=== PATIENT | female | born 1950 | race Caucasian/White ===

== ENCOUNTER → 2017-02-14 | Outpatient (REF) | payer MEDICARE ==
[~2017-02-14] MED LIST: /WARF25TA OR; /WARF5TA OR; ACET65TA OR; ALLO100T OR; BABY ASA PO; BYETTA INJ; CINNAMON PO; FERR325T OR; FISHCAP PO; HYDR25TA6 OR; LISI20TA5 OR; LISIPOW PO; METO50TA4 OR; METROPROLOL PO; MULTLIQ7 PO; NEURONTIN PO; PERC5TAB8 OR; PERC7.5T8 OR; TRAMADOL PO; VITA100T OR; VITA500C OR
== END ==
LOC: M WUC 09:20
PROVIDERS: ATTEND Physician Assistant
DX: R30.0 Dysuria (principal)

== ENCOUNTER → 2017-05-22 | Outpatient (REF) | payer MEDICARE | LOC: M LAB REF 21:11 | PROVIDERS: ATTEND Physician Assistant | DX: R30.0 Dysuria (principal) ==

== ENCOUNTER → 2017-10-30 | Outpatient (REF) | payer MEDICARE | LOC: M LAB REF 16:31 | DX: R30.0 Dysuria (principal) | CPT/HCPCS: 87186 ==

== ENCOUNTER → 2018-03-11 | Outpatient (REF) | payer MEDICARE ==
[2018-03-11 21:56] LABS: AMORPHOUS SEDIMENT SMALL (NEGATIVE); APPEARANCE, URINE CLOUDY (CLEAR); BACTERIA, URINE AUTO 1+ (NEGATIVE); BILIRUBIN, URINE AUTO NEGATIVE (NEGATIVE); BLOOD, URINE BLOOD 2+ (NEGATIVE); COLOR, URINE YELLOW (YELLOW); GLUCOSE, URINE (UA) AUTO 3+ mg/dL (NEGATIVE); KETONE, URINE AUTO NEGATIVE (NEGATIVE); LEUKOCYTE ESTERASE, URINE AUTO 3+ (NEGATIVE); MUCUS, URINE SMALL (NEGATIVE); NITRITE, URINE AUTO NEGATIVE (NEGATIVE); PROTEIN, URINE AUTO 2+ mg/dL (NEGATIVE); RBC, URINE AUTO 21 /HPF (0-3); SQUAMOUS EPITHELIAL CELL UR AU 0 /HPF (0-6); UROBILINOGEN, URINE AUTO 0.2 mg/dL (0.0-2.0); WBC, URINE AUTO TNTC /HPF (0-3)
== END ==
LOC: M LAB REF 20:57
DX: R30.0 Dysuria (principal)
CPT/HCPCS: 81001

== ENCOUNTER → 2018-07-24 | Outpatient (CLI) | payer MEDICARE ==
[2018-07-24 10:03] LABS: BASO % 0.4 % (0.0-1.0); EOS # 0.1 10^3/uL (0.0-0.50); EOS % 1.9 % (0.0-3.0); HEMATOCRIT 53.4 % (36.0-47.0); HEMOGLOBIN 17.6 g/dl (12.0-15.5); IMMATURE GRANULOCYTE % 0.3 % (0-3.0); LYMPH # 1.7 10^3/uL (1.5-4.5); LYMPH % 25.2 % (24.0-44.0); MEAN CORPUSCULAR HEMOGLOBIN 31.5 pg (27.0-33.0); MEAN CORPUSCULAR VOLUME 95.7 fl (80.0-96.0); MONO # 0.7 10^3/uL (0.0-0.8); NEUTROPHILS # 4.3 10^3/uL (1.8-7.7); NEUTROPHILS % 62.2 % (36.0-66.0); PLATELET COUNT, AUTOMATED 265 10^3/uL (150-450); RED BLOOD COUNT 5.58 10^6/uL (4.00-5.40); RED CELL DISTRIBUTION WIDTH 13.4 % (11.5-14.5); WHITE BLOOD COUNT 6.9 10^3/uL (4.0-10.0)
[2018-07-24 11:04] LABS: ALBUMIN 3.1 GM/DL (3.2-5.2); ALBUMIN/GLOBULIN RATIO 0.82 (1.00-1.93); ALKALINE PHOSPHATASE 68 U/L (45-117); ALT/SGPT 17 U/L (12-78); ANION GAP 8 MEQ/L (8-16); AST/SGOT 16 U/L (7-37); BILIRUBIN,TOTAL 0.4 MG/DL (0.2-1.0); BLOOD UREA NITROGEN 19 MG/DL (7-18); CALCIUM LEVEL 9.5 MG/DL (8.8-10.2); CARBON DIOXIDE LEVEL 31 MEQ/L (21-32); CHLORIDE LEVEL 103 MEQ/L (98-107); CHOLESTEROL LEVEL 274 MG/DL (<200); CHOLESTEROL RISK RATIO 7.828 (<5); CREATININE FOR GFR 0.59 MG/DL (0.55-1.30); GLOMERULAR FILTRATION RATE > 60.0 (>45); GLUCOSE, FASTING 126 MG/DL (70-100); HDL CHOLESTEROL 35 MG/DL (>40); LDL CHOLESTEROL 186 MG/DL (<100); NON-HDL-C 239 MG/DL; POTASSIUM SERUM 4.2 MEQ/L (3.5-5.1); SODIUM LEVEL 142 MEQ/L (136-145); TOTAL PROTEIN 6.9 GM/DL (6.4-8.2); TRIGLYCERIDES LEVEL 266 MG/DL (<150)
[2018-07-24 13:17] LABS: ESTIMATED AVERAGE GLUCOSE 240 MG/DL (60-110)
== END ==
LOC: M LAB 09:24
DX: C18.9 Malignant neoplasm of colon, unspecified (principal); E11.9 Type 2 diabetes mellitus without complications
CPT/HCPCS: 82378

== ENCOUNTER 2018-08-19 16:13 | Inpatient (IN) | payer MEDICARE ==
[2018-08-19 17:53] LABS: BASO % 0.4 % (0.0-1.0); EOS # 0.1 10^3/uL (0.0-0.50); EOS % 1.5 % (0.0-3.0); HEMOGLOBIN 17.1 g/dl (12.0-15.5); IMMATURE GRANULOCYTE % 0.3 % (0-3.0); LYMPH # 1.7 10^3/uL (1.5-4.5); LYMPH % 19.3 % (24.0-44.0); MEAN CORPUSCULAR HEMOGLOBIN 31.3 pg (27.0-33.0); MEAN CORPUSCULAR HGB CONC 32.3 g/dl (32.0-36.5); MEAN CORPUSCULAR VOLUME 97.1 fl (80.0-96.0); MONO # 0.8 10^3/uL (0.0-0.8); MONO % 8.8 % (0.0-5.0); NEUTROPHILS # 6.2 10^3/uL (1.8-7.7); NEUTROPHILS % 69.7 % (36.0-66.0); PLATELET COUNT, AUTOMATED 251 10^3/uL (150-450); RED BLOOD COUNT 5.46 10^6/uL (4.00-5.40); RED CELL DISTRIBUTION WIDTH 14.7 % (11.5-14.5); WHITE BLOOD COUNT 8.9 10^3/uL (4.0-10.0)
[2018-08-19] MEDS: LABETALOL HCL 100 MG/20 ML VIAL IV (17:56)
[2018-08-19] MEDS: FUROSEMIDE 40 MG/4 ML VIAL (J1940) IV (17:58)
[2018-08-19 18:39] LABS: INR 0.94; PROTHROMBIN TIME 12.6 SECONDS (12.1-14.4)
[2018-08-19 19:40] LABS: ALBUMIN 2.9 GM/DL (3.2-5.2); ALBUMIN/GLOBULIN RATIO 0.73 (1.00-1.93); ALKALINE PHOSPHATASE 70 U/L (45-117); ALT/SGPT 29 U/L (12-78); ANION GAP 5 MEQ/L (8-16); AST/SGOT 28 U/L (7-37); BILIRUBIN,DIRECT 0.2 MG/DL (0.0-0.2); BILIRUBIN,TOTAL 0.6 MG/DL (0.2-1.0); BLOOD UREA NITROGEN 14 MG/DL (7-18); CALCIUM LEVEL 8.4 MG/DL (8.8-10.2); CARBON DIOXIDE LEVEL 37 MEQ/L (21-32); CHLORIDE LEVEL 101 MEQ/L (98-107); CPK CREATINE PHOSPHOKINASE 93 U/L (26-192); CREATININE FOR GFR 0.54 MG/DL (0.55-1.30); GLOMERULAR FILTRATION RATE > 60.0 (>45); GLUCOSE, FASTING 63 MG/DL (70-100); MB/CK RELATIVE INDEX 1.72 (< OR =4); NT-PRO BNP 346 PG/ML (<125); POTASSIUM SERUM 3.5 MEQ/L (3.5-5.1); SODIUM LEVEL 143 MEQ/L (136-145); THYROXINE (T4) 8.8 UG/DL (4.5-12.0); TOTAL PROTEIN 6.9 GM/DL (6.4-8.2); TROPONIN I < 0.02 NG/ML (< 0.10)
[2018-08-19] MEDS ORDERED: GLUCOSE 4 GM CHEW TABLET PO (21:45)
[2018-08-19] MEDS ORDERED: GLUCAGON FOR INJ 1 MG VIAL (J1610) SC (21:45)
[2018-08-19] MEDS ORDERED: ACETAMINOPHEN TAB 650MG DOSE (2X325MG) PO (21:45)
[2018-08-19] MEDS ORDERED: DEXTROSE 50% 50 ML SYRINGE IV (21:45)
[2018-08-19 23:25] LABS: BEDSIDE GLUCOSE 196 MG/DL (80-115)
[2018-08-19] MEDS: GABAPENTIN 300 MG CAP PO (23:34)
[2018-08-19] MEDS: HumaLOG INSULIN (NovoLOG) PER UNIT SC (23:34)
[2018-08-19] MEDS: METOPROLOL TART 25 MG TABLET PO (23:35)
[2018-08-20] MEDS: FUROSEMIDE 40 MG/4 ML VIAL (J1940) IV ×3 (05:10→18:00)
[2018-08-20 06:11] LABS: HEMATOCRIT 50.9 % (36.0-47.0); HEMOGLOBIN 16.4 g/dl (12.0-15.5); MEAN CORPUSCULAR HEMOGLOBIN 31.6 pg (27.0-33.0); MEAN CORPUSCULAR HGB CONC 32.2 g/dl (32.0-36.5); MEAN CORPUSCULAR VOLUME 98.1 fl (80.0-96.0); PLATELET COUNT, AUTOMATED 269 10^3/uL (150-450); RED BLOOD COUNT 5.19 10^6/uL (4.00-5.40); RED CELL DISTRIBUTION WIDTH 14.7 % (11.5-14.5); WHITE BLOOD COUNT 9.5 10^3/uL (4.0-10.0)
[2018-08-20 06:37] LABS: ANION GAP 5 MEQ/L (8-16); BLOOD UREA NITROGEN 14 MG/DL (7-18); CALCIUM LEVEL 8.3 MG/DL (8.8-10.2); CARBON DIOXIDE LEVEL 36 MEQ/L (21-32); CHLORIDE LEVEL 101 MEQ/L (98-107); GLOMERULAR FILTRATION RATE > 60.0 (>45); GLUCOSE, FASTING 164 MG/DL (70-100); NT-PRO BNP 276 PG/ML (<125); POTASSIUM SERUM 3.9 MEQ/L (3.5-5.1); SODIUM LEVEL 142 MEQ/L (136-145)
[2018-08-20 08:23] LABS: ABG BASE EXCESS 3.2 (-2.0-2.0); ABG HCO3 28.8 MEQ/L (22.0-26.0); ABG O2 SATURATION 92.8 % (95.0-99.0); ABG PARTIAL PRESSURE CO2 47.3 mmHg (35.0-45.0); ABG PARTIAL PRESSURE O2 64.4 mmHg (75.0-100.0); ABG STANDARD HCO3 27.2 MEQ/L (22.0-26.0); ABG TOTAL CO2 30.3 MEQ/L (23.0-31.0); ABG pH (ARTERIAL) 7.403 UNITS (7.350-7.450)
[2018-08-20] MEDS: ASPIRIN 81 MG CHEW TABLET PO (08:49)
[2018-08-20] MEDS: MULTIVITAMINS/MINERALS THERAP 1 TAB PO (08:49)
[2018-08-20] MEDS: GABAPENTIN 300 MG CAP PO ×2 (08:49→20:51)
[2018-08-20] MEDS: LISINOPRIL 40 MG TAB PO (08:49)
[2018-08-20] MEDS: METOPROLOL TART 25 MG TABLET PO ×2 (08:49→20:51)
[2018-08-20] MEDS: HumaLOG INSULIN (NovoLOG) PER UNIT SC ×4 (08:50→20:51)
[2018-08-20] MEDS: ENOXAPARIN 40 MG/0.4 ML SYRINGE (J1650) SC (08:50)
[2018-08-20 11:48] LABS: BEDSIDE GLUCOSE 189 MG/DL (80-115)
[2018-08-20 13:05] LABS: D-DIMER QUANT 2694.3 ng/ml (<500)
[2018-08-20 17:19] LABS: BEDSIDE GLUCOSE 142 MG/DL (80-115)
[2018-08-20 20:32] LABS: BEDSIDE GLUCOSE 200 MG/DL (80-115)
[2018-08-20] MEDS: LEVEMIR (INSULIN DETEMIR) 1 UNITS/0.01ML SC (20:51)
[2018-08-21] MEDS: FUROSEMIDE 40 MG/4 ML VIAL (J1940) IV ×5 (00:17→23:48)
[2018-08-21 06:25] LABS: BASO % 0.3 % (0.0-1.0); EOS # 0.2 10^3/uL (0.0-0.50); EOS % 2.3 % (0.0-3.0); HEMATOCRIT 48.7 % (36.0-47.0); HEMOGLOBIN 15.8 g/dl (12.0-15.5); IMMATURE GRANULOCYTE % 0.3 % (0-3.0); LYMPH # 1.8 10^3/uL (1.5-4.5); LYMPH % 22.8 % (24.0-44.0); MEAN CORPUSCULAR HEMOGLOBIN 31.8 pg (27.0-33.0); MEAN CORPUSCULAR HGB CONC 32.4 g/dl (32.0-36.5); MONO # 0.9 10^3/uL (0.0-0.8); MONO % 10.9 % (0.0-5.0); NEUTROPHILS # 4.9 10^3/uL (1.8-7.7); NEUTROPHILS % 63.4 % (36.0-66.0); PLATELET COUNT, AUTOMATED 242 10^3/uL (150-450); RED BLOOD COUNT 4.97 10^6/uL (4.00-5.40); RED CELL DISTRIBUTION WIDTH 14.5 % (11.5-14.5); WHITE BLOOD COUNT 7.8 10^3/uL (4.0-10.0)
[2018-08-21 06:44] LABS: ANION GAP 6 MEQ/L (8-16); BLOOD UREA NITROGEN 15 MG/DL (7-18); CALCIUM LEVEL 8.5 MG/DL (8.8-10.2); CARBON DIOXIDE LEVEL 38 MEQ/L (21-32); CHLORIDE LEVEL 97 MEQ/L (98-107); CREATININE FOR GFR 0.65 MG/DL (0.55-1.30); GLOMERULAR FILTRATION RATE > 60.0 (>45); GLUCOSE, FASTING 156 MG/DL (70-100); POTASSIUM SERUM 3.2 MEQ/L (3.5-5.1); SODIUM LEVEL 141 MEQ/L (136-145)
[2018-08-21] MEDS: HumaLOG INSULIN (NovoLOG) PER UNIT SC ×4 (08:24→21:00)
[2018-08-21] MEDS: ASPIRIN 81 MG CHEW TABLET PO (09:24)
[2018-08-21] MEDS: LISINOPRIL 40 MG TAB PO (09:25)
[2018-08-21] MEDS: POTASSIUM CHLORIDE 10 MEQ SR TABLET PO ×2 (09:25→21:40)
[2018-08-21] MEDS: MULTIVITAMINS/MINERALS THERAP 1 TAB PO (09:26)
[2018-08-21] MEDS: GABAPENTIN 300 MG CAP PO ×2 (09:26→21:40)
[2018-08-21] MEDS: METOPROLOL TART 25 MG TABLET PO ×2 (09:26→22:51)
[2018-08-21 11:21] LABS: BEDSIDE GLUCOSE 185 MG/DL (80-115)
[2018-08-21] MEDS: ENOXAPARIN 40 MG/0.4 ML SYRINGE (J1650) SC (12:53)
[2018-08-21 16:29] LABS: BEDSIDE GLUCOSE 180 MG/DL (80-115)
[2018-08-21 20:49] LABS: BEDSIDE GLUCOSE 207 MG/DL (80-115)
[2018-08-21] MEDS: LEVEMIR (INSULIN DETEMIR) 1 UNITS/0.01ML SC (21:40)
[2018-08-22 05:52] LABS: BASO % 0.4 % (0.0-1.0); EOS # 0.2 10^3/uL (0.0-0.50); EOS % 2.5 % (0.0-3.0); HEMATOCRIT 49.9 % (36.0-47.0); HEMOGLOBIN 16.3 g/dl (12.0-15.5); IMMATURE GRANULOCYTE % 0.3 % (0-3.0); LYMPH # 1.6 10^3/uL (1.5-4.5); LYMPH % 20.9 % (24.0-44.0); MEAN CORPUSCULAR HEMOGLOBIN 31.5 pg (27.0-33.0); MEAN CORPUSCULAR HGB CONC 32.7 g/dl (32.0-36.5); MEAN CORPUSCULAR VOLUME 96.3 fl (80.0-96.0); MONO % 13.2 % (0.0-5.0); NEUTROPHILS # 4.9 10^3/uL (1.8-7.7); NEUTROPHILS % 62.7 % (36.0-66.0); PLATELET COUNT, AUTOMATED 249 10^3/uL (150-450); RED BLOOD COUNT 5.18 10^6/uL (4.00-5.40); RED CELL DISTRIBUTION WIDTH 14.1 % (11.5-14.5); WHITE BLOOD COUNT 7.7 10^3/uL (4.0-10.0)
[2018-08-22 06:15] LABS: ANION GAP 6 MEQ/L (8-16); BLOOD UREA NITROGEN 19 MG/DL (7-18); CALCIUM LEVEL 8.6 MG/DL (8.8-10.2); CARBON DIOXIDE LEVEL 39 MEQ/L (21-32); CHLORIDE LEVEL 96 MEQ/L (98-107); GLOMERULAR FILTRATION RATE > 60.0 (>45); GLUCOSE, FASTING 170 MG/DL (70-100); POTASSIUM SERUM 3.6 MEQ/L (3.5-5.1); SODIUM LEVEL 141 MEQ/L (136-145)
[2018-08-22] MEDS: FUROSEMIDE 40 MG/4 ML VIAL (J1940) IV ×2 (07:03→17:51)
[2018-08-22] MEDS: METOPROLOL TART 25 MG TABLET PO ×2 (08:28→20:44)
[2018-08-22] MEDS: LISINOPRIL 40 MG TAB PO (08:28)
[2018-08-22] MEDS: ASPIRIN 81 MG CHEW TABLET PO (08:28)
[2018-08-22] MEDS: MULTIVITAMINS/MINERALS THERAP 1 TAB PO (08:28)
[2018-08-22] MEDS: POTASSIUM CHLORIDE 10 MEQ SR TABLET PO ×2 (08:28→20:43)
[2018-08-22] MEDS: ENOXAPARIN 40 MG/0.4 ML SYRINGE (J1650) SC (08:29)
[2018-08-22] MEDS: GABAPENTIN 300 MG CAP PO ×2 (08:29→20:44)
[2018-08-22] MEDS: HumaLOG INSULIN (NovoLOG) PER UNIT SC ×4 (08:30→20:44)
[2018-08-22 11:38] LABS: BEDSIDE GLUCOSE 238 MG/DL (80-115)
[2018-08-22 16:37] LABS: BEDSIDE GLUCOSE 159 MG/DL (80-115)
[2018-08-22] MEDS: LEVEMIR (INSULIN DETEMIR) 1 UNITS/0.01ML SC (20:45)
[2018-08-22 20:46] LABS: BEDSIDE GLUCOSE 228 MG/DL (80-115)
[2018-08-23] MEDS: FUROSEMIDE 40 MG/4 ML VIAL (J1940) IV (06:01)
[2018-08-23 06:06] LABS: BASO % 0.4 % (0.0-1.0); EOS # 0.2 10^3/uL (0.0-0.50); EOS % 2.2 % (0.0-3.0); HEMATOCRIT 51.2 % (36.0-47.0); HEMOGLOBIN 16.5 g/dl (12.0-15.5); IMMATURE GRANULOCYTE % 0.4 % (0-3.0); LYMPH # 1.4 10^3/uL (1.5-4.5); MEAN CORPUSCULAR HGB CONC 32.2 g/dl (32.0-36.5); MEAN CORPUSCULAR VOLUME 99.2 fl (80.0-96.0); MONO # 0.9 10^3/uL (0.0-0.8); MONO % 13.1 % (0.0-5.0); NEUTROPHILS # 4.6 10^3/uL (1.8-7.7); NEUTROPHILS % 63.9 % (36.0-66.0); PLATELET COUNT, AUTOMATED 250 10^3/uL (150-450); RED BLOOD COUNT 5.16 10^6/uL (4.00-5.40); RED CELL DISTRIBUTION WIDTH 14.1 % (11.5-14.5); WHITE BLOOD COUNT 7.2 10^3/uL (4.0-10.0)
[2018-08-23 06:30] LABS: ANION GAP 2 MEQ/L (8-16); BLOOD UREA NITROGEN 25 MG/DL (7-18); CALCIUM LEVEL 8.8 MG/DL (8.8-10.2); CARBON DIOXIDE LEVEL 40 MEQ/L (21-32); CHLORIDE LEVEL 97 MEQ/L (98-107); CREATININE FOR GFR 0.75 MG/DL (0.55-1.30); GLOMERULAR FILTRATION RATE > 60.0 (>45); GLUCOSE, FASTING 180 MG/DL (70-100); SODIUM LEVEL 139 MEQ/L (136-145)
[2018-08-23] MEDS: HumaLOG INSULIN (NovoLOG) PER UNIT SC ×4 (08:08→21:21)
[2018-08-23] MEDS: GABAPENTIN 300 MG CAP PO ×2 (10:23→21:21)
[2018-08-23] MEDS: LISINOPRIL 40 MG TAB PO (10:23)
[2018-08-23] MEDS: MULTIVITAMINS/MINERALS THERAP 1 TAB PO (10:23)
[2018-08-23] MEDS: METOPROLOL TART 25 MG TABLET PO ×2 (10:24→21:20)
[2018-08-23] MEDS: POTASSIUM CHLORIDE 10 MEQ SR TABLET PO ×2 (10:25→21:21)
[2018-08-23] MEDS: ASPIRIN 81 MG CHEW TABLET PO (10:25)
[2018-08-23 11:42] LABS: BEDSIDE GLUCOSE 237 MG/DL (80-115)
[2018-08-23] MEDS: DOCUSATE SODIUM 100 MG CAP PO ×2 (12:57→21:21)
[2018-08-23 17:13] LABS: BEDSIDE GLUCOSE 200 MG/DL (80-115)
[2018-08-23 20:43] LABS: BEDSIDE GLUCOSE 297 MG/DL (80-115)
[2018-08-23] MEDS: LEVEMIR (INSULIN DETEMIR) 1 UNITS/0.01ML SC (21:22)
[2018-08-24 06:30] LABS: BASO % 0.5 % (0.0-1.0); EOS # 0.2 10^3/uL (0.0-0.50); EOS % 2.7 % (0.0-3.0); HEMATOCRIT 49.9 % (36.0-47.0); HEMOGLOBIN 16.1 g/dl (12.0-15.5); IMMATURE GRANULOCYTE % 0.2 % (0-3.0); LYMPH # 1.4 10^3/uL (1.5-4.5); LYMPH % 23.2 % (24.0-44.0); MEAN CORPUSCULAR HEMOGLOBIN 31.7 pg (27.0-33.0); MEAN CORPUSCULAR HGB CONC 32.3 g/dl (32.0-36.5); MEAN CORPUSCULAR VOLUME 98.2 fl (80.0-96.0); MONO # 0.9 10^3/uL (0.0-0.8); MONO % 14.7 % (0.0-5.0); NEUTROPHILS # 3.7 10^3/uL (1.8-7.7); NEUTROPHILS % 58.7 % (36.0-66.0); PLATELET COUNT, AUTOMATED 250 10^3/uL (150-450); RED BLOOD COUNT 5.08 10^6/uL (4.00-5.40); RED CELL DISTRIBUTION WIDTH 13.8 % (11.5-14.5); WHITE BLOOD COUNT 6.2 10^3/uL (4.0-10.0)
[2018-08-24 06:52] LABS: ANION GAP 4 MEQ/L (8-16); BLOOD UREA NITROGEN 28 MG/DL (7-18); CALCIUM LEVEL 9.2 MG/DL (8.8-10.2); CARBON DIOXIDE LEVEL 36 MEQ/L (21-32); CHLORIDE LEVEL 99 MEQ/L (98-107); CREATININE FOR GFR 0.72 MG/DL (0.55-1.30); GLOMERULAR FILTRATION RATE > 60.0 (>45); GLUCOSE, FASTING 196 MG/DL (70-100); POTASSIUM SERUM 4.3 MEQ/L (3.5-5.1); SODIUM LEVEL 139 MEQ/L (136-145)
[2018-08-24] MEDS: MULTIVITAMINS/MINERALS THERAP 1 TAB PO (09:13)
[2018-08-24] MEDS: ASPIRIN 81 MG CHEW TABLET PO (09:13)
[2018-08-24] MEDS: GABAPENTIN 300 MG CAP PO ×2 (09:13→20:58)
[2018-08-24] MEDS: HumaLOG INSULIN (NovoLOG) PER UNIT SC ×4 (09:13→21:00)
[2018-08-24] MEDS: DOCUSATE SODIUM 100 MG CAP PO ×2 (09:14→20:59)
[2018-08-24] MEDS: POTASSIUM CHLORIDE 10 MEQ SR TABLET PO (09:14)
[2018-08-24] MEDS: LISINOPRIL 40 MG TAB PO (09:16)
[2018-08-24] MEDS: FUROSEMIDE 40 MG TAB PO (09:16)
[2018-08-24] MEDS: METOPROLOL TART 25 MG TABLET PO ×2 (09:18→20:59)
[2018-08-24 10:12] LABS: ALPHA 1 ANTITRYPSIN 192 mg/dL (90-200)
[2018-08-24] MEDS: LEVEMIR (INSULIN DETEMIR) 1 UNITS/0.01ML SC ×2 (10:49→21:00)
[2018-08-24] MEDS: TIOTROPIUM INHALER/CAPSULE (SPIRIVA) INH (11:32)
[2018-08-24 11:42] LABS: BEDSIDE GLUCOSE 278 MG/DL (80-115)
[2018-08-24 16:56] LABS: BEDSIDE GLUCOSE 205 MG/DL (80-115)
[2018-08-24 18:39] LABS: BEDSIDE GLUCOSE 255 MG/DL (80-115)
[2018-08-24 19:56] LABS: BEDSIDE GLUCOSE 297 MG/DL (80-115)
[2018-08-25 05:58] LABS: BASO % 0.3 % (0.0-1.0); EOS # 0.2 10^3/uL (0.0-0.50); EOS % 3.5 % (0.0-3.0); HEMATOCRIT 51.4 % (36.0-47.0); HEMOGLOBIN 16.2 g/dl (12.0-15.5); IMMATURE GRANULOCYTE % 0.3 % (0-3.0); LYMPH # 1.6 10^3/uL (1.5-4.5); LYMPH % 24.5 % (24.0-44.0); MEAN CORPUSCULAR HEMOGLOBIN 31.2 pg (27.0-33.0); MEAN CORPUSCULAR HGB CONC 31.5 g/dl (32.0-36.5); MONO # 0.8 10^3/uL (0.0-0.8); MONO % 13.3 % (0.0-5.0); NEUTROPHILS # 3.7 10^3/uL (1.8-7.7); NEUTROPHILS % 58.1 % (36.0-66.0); PLATELET COUNT, AUTOMATED 250 10^3/uL (150-450); RED BLOOD COUNT 5.19 10^6/uL (4.00-5.40); RED CELL DISTRIBUTION WIDTH 13.7 % (11.5-14.5); WHITE BLOOD COUNT 6.3 10^3/uL (4.0-10.0)
[2018-08-25 06:24] LABS: ANION GAP 2 MEQ/L (8-16); BLOOD UREA NITROGEN 26 MG/DL (7-18); CALCIUM LEVEL 8.5 MG/DL (8.8-10.2); CARBON DIOXIDE LEVEL 37 MEQ/L (21-32); CHLORIDE LEVEL 101 MEQ/L (98-107); CREATININE FOR GFR 0.65 MG/DL (0.55-1.30); GLOMERULAR FILTRATION RATE > 60.0 (>45); GLUCOSE, FASTING 182 MG/DL (70-100); POTASSIUM SERUM 4.1 MEQ/L (3.5-5.1); SODIUM LEVEL 140 MEQ/L (136-145)
[2018-08-25] MEDS: TIOTROPIUM INHALER/CAPSULE (SPIRIVA) INH (07:11)
[2018-08-25] MEDS: MULTIVITAMINS/MINERALS THERAP 1 TAB PO (08:47)
[2018-08-25] MEDS: FUROSEMIDE 40 MG TAB PO ×2 (08:47→20:42)
[2018-08-25] MEDS: GABAPENTIN 300 MG CAP PO ×2 (08:47→20:41)
[2018-08-25] MEDS: ASPIRIN 81 MG CHEW TABLET PO (08:47)
[2018-08-25] MEDS: POTASSIUM CHLORIDE 10 MEQ SR TABLET PO (08:48)
[2018-08-25] MEDS: LISINOPRIL 40 MG TAB PO (08:52)
[2018-08-25] MEDS: DOCUSATE SODIUM 100 MG CAP PO ×2 (08:53→20:43)
[2018-08-25] MEDS: METOPROLOL TART 25 MG TABLET PO ×2 (08:53→20:48)
[2018-08-25] MEDS: HumaLOG INSULIN (NovoLOG) PER UNIT SC ×4 (08:54→20:43)
[2018-08-25] MEDS: LEVEMIR (INSULIN DETEMIR) 1 UNITS/0.01ML SC (08:55)
[2018-08-25 10:13] LABS: ESTIMATED AVERAGE GLUCOSE 212 MG/DL (60-110)
[2018-08-25 11:47] LABS: BEDSIDE GLUCOSE 258 MG/DL (80-115)
[2018-08-25 16:52] LABS: BEDSIDE GLUCOSE 198 MG/DL (80-115)
[2018-08-25 19:51] LABS: BEDSIDE GLUCOSE 276 MG/DL (80-115)
[2018-08-26 06:03] LABS: BASO % 0.5 % (0.0-1.0); EOS # 0.2 10^3/uL (0.0-0.50); EOS % 2.7 % (0.0-3.0); HEMATOCRIT 50.7 % (36.0-47.0); HEMOGLOBIN 16.5 g/dl (12.0-15.5); IMMATURE GRANULOCYTE % 0.2 % (0-3.0); LYMPH # 1.5 10^3/uL (1.5-4.5); LYMPH % 23.5 % (24.0-44.0); MEAN CORPUSCULAR HEMOGLOBIN 31.5 pg (27.0-33.0); MEAN CORPUSCULAR HGB CONC 32.5 g/dl (32.0-36.5); MEAN CORPUSCULAR VOLUME 96.9 fl (80.0-96.0); MONO # 0.8 10^3/uL (0.0-0.8); MONO % 13.1 % (0.0-5.0); NEUTROPHILS # 3.7 10^3/uL (1.8-7.7); PLATELET COUNT, AUTOMATED 243 10^3/uL (150-450); RED BLOOD COUNT 5.23 10^6/uL (4.00-5.40); RED CELL DISTRIBUTION WIDTH 13.4 % (11.5-14.5); WHITE BLOOD COUNT 6.2 10^3/uL (4.0-10.0)
[2018-08-26 06:23] LABS: ANION GAP 5 MEQ/L (8-16); BLOOD UREA NITROGEN 21 MG/DL (7-18); CALCIUM LEVEL 8.8 MG/DL (8.8-10.2); CARBON DIOXIDE LEVEL 35 MEQ/L (21-32); CHLORIDE LEVEL 99 MEQ/L (98-107); CREATININE FOR GFR 0.64 MG/DL (0.55-1.30); GLOMERULAR FILTRATION RATE > 60.0 (>45); GLUCOSE, FASTING 189 MG/DL (70-100); POTASSIUM SERUM 3.9 MEQ/L (3.5-5.1); SODIUM LEVEL 139 MEQ/L (136-145)
[2018-08-26] MEDS: TIOTROPIUM INHALER/CAPSULE (SPIRIVA) INH (08:17)
[2018-08-26] MEDS: POTASSIUM CHLORIDE 10 MEQ SR TABLET PO (08:34)
[2018-08-26] MEDS: DOCUSATE SODIUM 100 MG CAP PO ×2 (08:35→21:45)
[2018-08-26] MEDS: METOPROLOL TART 25 MG TABLET PO ×2 (08:35→21:44)
[2018-08-26] MEDS: ASPIRIN 81 MG CHEW TABLET PO (08:35)
[2018-08-26] MEDS: LISINOPRIL 40 MG TAB PO (08:35)
[2018-08-26] MEDS: MULTIVITAMINS/MINERALS THERAP 1 TAB PO (08:35)
[2018-08-26] MEDS: GABAPENTIN 300 MG CAP PO ×2 (08:36→21:44)
[2018-08-26] MEDS: LEVEMIR (INSULIN DETEMIR) 1 UNITS/0.01ML SC (08:36)
[2018-08-26] MEDS: FUROSEMIDE 40 MG TAB PO ×2 (08:36→21:44)
[2018-08-26] MEDS: HumaLOG INSULIN (NovoLOG) PER UNIT SC ×4 (08:37→21:45)
[2018-08-26 11:47] LABS: BEDSIDE GLUCOSE 259 MG/DL (80-115)
[2018-08-26 17:00] LABS: BEDSIDE GLUCOSE 194 MG/DL (80-115)
[2018-08-26 20:54] LABS: BEDSIDE GLUCOSE 310 MG/DL (80-115)
[2018-08-27 06:08] LABS: BASO % 0.6 % (0.0-1.0); EOS # 0.2 10^3/uL (0.0-0.50); EOS % 2.3 % (0.0-3.0); HEMATOCRIT 51.9 % (36.0-47.0); HEMOGLOBIN 16.9 g/dl (12.0-15.5); IMMATURE GRANULOCYTE % 0.2 % (0-3.0); LYMPH # 1.5 10^3/uL (1.5-4.5); LYMPH % 22.8 % (24.0-44.0); MEAN CORPUSCULAR HEMOGLOBIN 31.5 pg (27.0-33.0); MEAN CORPUSCULAR HGB CONC 32.6 g/dl (32.0-36.5); MEAN CORPUSCULAR VOLUME 96.6 fl (80.0-96.0); MONO # 0.9 10^3/uL (0.0-0.8); MONO % 14.3 % (0.0-5.0); NEUTROPHILS % 59.8 % (36.0-66.0); PLATELET COUNT, AUTOMATED 255 10^3/uL (150-450); RED BLOOD COUNT 5.37 10^6/uL (4.00-5.40); RED CELL DISTRIBUTION WIDTH 13.3 % (11.5-14.5); WHITE BLOOD COUNT 6.6 10^3/uL (4.0-10.0)
[2018-08-27 06:26] LABS: ANION GAP 5 MEQ/L (8-16); BLOOD UREA NITROGEN 21 MG/DL (7-18); CALCIUM LEVEL 8.9 MG/DL (8.8-10.2); CARBON DIOXIDE LEVEL 37 MEQ/L (21-32); CHLORIDE LEVEL 98 MEQ/L (98-107); CREATININE FOR GFR 0.77 MG/DL (0.55-1.30); GLOMERULAR FILTRATION RATE > 60.0 (>45); GLUCOSE, FASTING 190 MG/DL (70-100); POTASSIUM SERUM 3.8 MEQ/L (3.5-5.1); SODIUM LEVEL 140 MEQ/L (136-145)
[2018-08-27] MEDS: TIOTROPIUM INHALER/CAPSULE (SPIRIVA) INH (07:17)
[2018-08-27] MEDS: HumaLOG INSULIN (NovoLOG) PER UNIT SC ×2 (07:59→12:11)
[2018-08-27] MEDS: ASPIRIN 81 MG CHEW TABLET PO (09:50)
[2018-08-27] MEDS: LISINOPRIL 40 MG TAB PO (09:51)
[2018-08-27] MEDS: POTASSIUM CHLORIDE 10 MEQ SR TABLET PO (09:51)
[2018-08-27] MEDS: FUROSEMIDE 40 MG TAB PO (09:52)
[2018-08-27] MEDS: GABAPENTIN 300 MG CAP PO (09:52)
[2018-08-27] MEDS: DOCUSATE SODIUM 100 MG CAP PO (09:52)
[2018-08-27] MEDS: METOPROLOL TART 25 MG TABLET PO (09:53)
[2018-08-27] MEDS: MULTIVITAMINS/MINERALS THERAP 1 TAB PO (10:04)
[2018-08-27] MEDS: LEVEMIR (INSULIN DETEMIR) 1 UNITS/0.01ML SC (10:09)
[2018-08-27 11:36] LABS: BEDSIDE GLUCOSE 287 MG/DL (80-115)
== END 2018-08-27 16:36 | disposition home or self-care (01) | DRG 291 ==
LOC: M ED 16:13 → M ED INP 21:39 → M MSPAV 23:12
DX: I11.0 Hypertensive heart disease with heart failure (principal); J96.21 Acute and chronic respiratory failure with hypoxia; E66.2 Morbid (severe) obesity with alveolar hypoventilation; I50.33 Acute on chronic diastolic (congestive) heart failure; E11.9 Type 2 diabetes mellitus without complications; R09.02 Hypoxemia; E87.6 Hypokalemia; D75.1 Secondary polycythemia; N95.0 Postmenopausal bleeding; Z85.038 Personal history of other malignant neoplasm of large intestine; Z90.49 Acquired absence of other specified parts of digestive tract; Z87.891 Personal history of nicotine dependence; Z79.82 Long term (current) use of aspirin; Z79.4 Long term (current) use of insulin; Z79.899 Other long term (current) drug therapy; Z88.1 Allergy status to other antibiotic agents; Z88.8 Allergy status to other drugs, medicaments and biological substances; Z91.041 Radiographic dye allergy status

== ENCOUNTER → 2018-09-22 | Outpatient (CLI) | payer MEDICARE ==
[~2018-09-22] MED LIST changes: +ACET1TAB55 PO; +ASPI81CH32 PO; +GABA-843 PO; +GLIM4TAB PO; +KRIL1CAP6 PO; +LASI40TA PO; +LEVE1INJ5 SC; +LISI40TAB PO; +METO50TA7 PO; +SPIR-10 PO; +TIOT18INH INH; +VITMTA PO
[2018-09-22 14:07] LABS: BASO % 0.4 % (0.0-1.0); EOS # 0.2 10^3/uL (0.0-0.50); EOS % 2.3 % (0.0-3.0); HEMATOCRIT 51.6 % (36.0-47.0); HEMOGLOBIN 17.2 g/dl (12.0-15.5); LYMPH # 2.3 10^3/uL (1.5-4.5); LYMPH % 30.2 % (24.0-44.0); MEAN CORPUSCULAR HEMOGLOBIN 31.7 pg (27.0-33.0); MEAN CORPUSCULAR HGB CONC 33.3 g/dl (32.0-36.5); MONO # 0.8 10^3/uL (0.0-0.8); MONO % 10.2 % (0.0-5.0); NEUTROPHILS # 4.4 10^3/uL (1.8-7.7); NEUTROPHILS % 56.6 % (36.0-66.0); PLATELET COUNT, AUTOMATED 204 10^3/uL (150-450); RED BLOOD COUNT 5.43 10^6/uL (4.00-5.40); WHITE BLOOD COUNT 7.7 10^3/uL (4.0-10.0)
[2018-09-22 14:26] LABS: ALBUMIN 3.2 GM/DL (3.2-5.2); ALT/SGPT 21 U/L (12-78); BILIRUBIN,TOTAL 0.3 MG/DL (0.2-1.0); BLOOD UREA NITROGEN 26 MG/DL (7-18); CALCIUM LEVEL 9.1 MG/DL (8.8-10.2); CARBON DIOXIDE LEVEL 36 MEQ/L (21-32); CHLORIDE LEVEL 99 MEQ/L (98-107); CREATININE FOR GFR 0.96 MG/DL (0.55-1.30); GLOMERULAR FILTRATION RATE > 60.0 (>45); GLUCOSE, FASTING 237 MG/DL (70-100); SODIUM LEVEL 140 MEQ/L (136-145); TOTAL PROTEIN 7.8 GM/DL (6.4-8.2)
== END ==
LOC: M LAB 13:41
PROVIDERS: ATTEND Family Medicine
DX: I50.32 Chronic diastolic (congestive) heart failure (principal)

== ENCOUNTER → 2019-01-02 | Outpatient (CLI) | payer MEDICARE ==
[~2019-01-02] MED LIST changes: -LASI40TA PO; +LASI40TA9 PO; +LISI40TA PO; -LISI40TAB PO
[2019-01-02 15:20] LABS: BASO % 0.3 % (0.0-1.0); EOS # 0.1 10^3/uL (0.0-0.50); EOS % 1.1 % (0.0-3.0); HEMATOCRIT 36.5 % (36.0-47.0); LYMPH # 2.1 10^3/uL (1.5-4.5); LYMPH % 21.4 % (24.0-44.0); MEAN CORPUSCULAR HEMOGLOBIN 32.3 pg (27.0-33.0); MEAN CORPUSCULAR HGB CONC 32.9 g/dl (32.0-36.5); MEAN CORPUSCULAR VOLUME 98.1 fl (80.0-96.0); MONO # 0.8 10^3/uL (0.0-0.8); MONO % 8.3 % (0.0-5.0); NEUTROPHILS # 6.6 10^3/uL (1.8-7.7); NEUTROPHILS % 68.4 % (36.0-66.0); PLATELET COUNT, AUTOMATED 266 10^3/uL (150-450); RED BLOOD COUNT 3.72 10^6/uL (4.00-5.40); WHITE BLOOD COUNT 9.6 10^3/uL (4.0-10.0)
[2019-01-02 15:47] LABS: ALBUMIN 3.5 GM/DL (3.2-5.2); BILIRUBIN,TOTAL 0.5 MG/DL (0.2-1.0); CALCIUM LEVEL 9.3 MG/DL (8.8-10.2); CREATININE FOR GFR 1.36 MG/DL (0.55-1.30); GLOMERULAR FILTRATION RATE 41.2 (>45); POTASSIUM SERUM 4.9 MEQ/L (3.5-5.1); TOTAL PROTEIN 7.4 GM/DL (6.4-8.2)
[2019-01-02 15:56] LABS: HEMOGLOBIN A1c 9.1 %
== END ==
LOC: M LAB 14:35
PROVIDERS: ATTEND Family Medicine
DX: E11.9 Type 2 diabetes mellitus without complications (principal); I50.32 Chronic diastolic (congestive) heart failure

== ENCOUNTER → 2019-01-21 | Outpatient (CLI) | payer MEDICARE ==
[~2019-01-21] MED LIST changes: -/WARF25TA OR; -/WARF5TA OR; -ASPI81CH32 PO; +ASPI81CH33 PO; +COUM1TAB17 OR; +COUM1TAB18 OR
== END ==
LOC: M SLEEP 19:14
PROVIDERS: ATTEND Internal Medicine Pulmonary Disease
DX: G47.30 Sleep apnea, unspecified (principal)

== ENCOUNTER → 2019-02-07 | Outpatient (REF) | payer MEDICARE | LOC: M LAB REF 17:13 | PROVIDERS: ATTEND Specialist | DX: N85.00 Endometrial hyperplasia, unspecified (principal) ==

== ENCOUNTER → 2019-04-02 | Outpatient (CLI) | payer MEDICARE ==
[2019-04-02 16:15] LABS: BASO % 0.6 % (0.0-1.0); EOS # 0.1 10^3/uL (0.0-0.50); EOS % 1.9 % (0.0-3.0); HEMATOCRIT 36.8 % (36.0-47.0); LYMPH # 1.8 10^3/uL (1.5-4.5); LYMPH % 27.8 % (24.0-44.0); MEAN CORPUSCULAR HEMOGLOBIN 32.7 pg (27.0-33.0); MEAN CORPUSCULAR HGB CONC 32.6 g/dl (32.0-36.5); MEAN CORPUSCULAR VOLUME 100.3 fl (80.0-96.0); MONO # 0.7 10^3/uL (0.0-0.8); MONO % 11.4 % (0.0-5.0); NEUTROPHILS # 3.7 10^3/uL (1.8-7.7); PLATELET COUNT, AUTOMATED 278 10^3/uL (150-450); RED BLOOD COUNT 3.67 10^6/uL (4.00-5.40); WHITE BLOOD COUNT 6.3 10^3/uL (4.0-10.0)
[2019-04-02 16:35] LABS: ALBUMIN 3.6 GM/DL (3.2-5.2); BILIRUBIN,TOTAL 0.2 MG/DL (0.2-1.0); CALCIUM LEVEL 8.9 MG/DL (8.8-10.2); CREATININE FOR GFR 1.11 MG/DL (0.55-1.30); POTASSIUM SERUM 5.2 MEQ/L (3.5-5.1); TOTAL PROTEIN 7.7 GM/DL (6.4-8.2)
--- NOTE | 2019-04-04 00:05 | ECGEPIP ---
[facility] Test Date: 2019-04-02 Pat Name: FABI CONNER Department: Room: - Gender: Female [employer] Equipment Operator: : [id number] Requested By: FEROZ BOLAÑOS Order Number: [id number] Reading MD: Oswaldo Gonzalez Measurements Intervals [place] Rate: 74 P: 12 MD: 204 QRS: QRSD: 101 T: 85 QT: 377 QTc: 419 Interpretive Statements SINUS RHYTHM BORDERLINE LEFT AXIS DEVIATION NONSPECIFIC T-WAVE ABNORMALITY PRIOR TRACING ON 08/19/2018 AT 4:54 P.M.. THERE IS NOW BETTER R-WAVE PROGRESSION BUT ST-T ABNORMALITY IS NEW Electronically Signed on 04-04-2019 0:05:14 EDT by Oswaldo Gonzalez
== END ==
LOC: M LAB 15:23
PROVIDERS: ATTEND Family Medicine
DX: Z01.818 Encounter for other preprocedural examination (principal)

== ENCOUNTER 2019-04-17 05:55 | Day surgery (SDC) | payer MEDICARE ==
[~2019-04-17] VITALS: Ht 165.1 cm; Wt 114.8 kg
[2019-04-17 06:32] LABS: HEMATOCRIT 36.2 % (36.0-47.0); HEMOGLOBIN 11.9 g/dl (12.0-15.5); MEAN CORPUSCULAR HEMOGLOBIN 33.1 pg (27.0-33.0); MEAN CORPUSCULAR HGB CONC 32.9 g/dl (32.0-36.5); MEAN CORPUSCULAR VOLUME 100.8 fl (80.0-96.0); PLATELET COUNT, AUTOMATED 309 10^3/uL (150-450); RED BLOOD COUNT 3.59 10^6/uL (4.00-5.40)
[2019-04-17 07:03] LABS: CALCIUM LEVEL 9.1 MG/DL (8.8-10.2); CREATININE FOR GFR 1.32 MG/DL (0.55-1.30); GLOMERULAR FILTRATION RATE 42.6 (>45); POTASSIUM SERUM 4.5 MEQ/L (3.5-5.1)
[2019-04-17] MEDS ORDERED: fentaNYL 100 MCG/2 ML INJECTION (J3010) As Ordered ONE (07:10)
[2019-04-17] MEDS ORDERED: MIDAZOLAM INJ 2 MG/2 ML VIAL (J2250) As Ordered ONE (07:10)
[2019-04-17] MEDS ORDERED: PROPOFOL 200 MG/20 ML VIAL As Ordered ONE (07:10)
[2019-04-17] MEDS ORDERED: LIDOCAINE 2% INJ 100 MG/5 ML SDV (FOR ANES.) As Ordered ONE (07:10)
[2019-04-17] MEDS ORDERED: HumaLOG INSULIN (NovoLOG) PER UNIT As Ordered ONE (07:27)
[2019-04-17] MEDS ORDERED: SUCCINYLCHOLINE 100 MG/5 ML SYRINGE (J0330) As Ordered ONE (07:33)
[2019-04-17] MEDS ORDERED: dexameTHASONE 4 MG/ML 1ML VIAL (J1100) As Ordered ONE (07:45)
[2019-04-17] MEDS ORDERED: ONDANSETRON 4MG/2ML VIAL (J2405) As Ordered ONE (07:46)
[2019-04-17] MEDS ORDERED: ePHEDrine SULFATE 25 MG/5 ML(5MG/ML) SYRINGE As Ordered ONE ×2 (07:48→08:00)
[2019-04-17] MEDS ORDERED: PHENYLephrine HCL 500 MCG/5 ML (100MCG/ML) SYRINGE (J2370) As Ordered ONE (07:49)
[2019-04-17] MEDS ORDERED: KETOROLAC 60 MG/2 ML VIAL (J1885) As Ordered ONE (08:00)
[2019-04-17] MEDS ORDERED: ACETAMINOPHEN 1000MG 100ML IV BTL (OFIRMEV) (J0131 PER 10MG) As Ordered ONE (08:00)
[2019-04-17] MEDS ORDERED: oxyCODONE 5MG TAB PO PRN (08:45)
[2019-04-17] MEDS ORDERED: METOCLOPRAMIDE INJ 10MG/2ML VIAL (J2765) IV PRN (08:45)
[2019-04-17] MEDS ORDERED: ACETAMINOPHEN 500 MG TAB PO ONE (08:45)
[2019-04-17] MEDS ORDERED: LR 1,000 ML IV SCH (08:45)
[2019-04-17] MEDS ORDERED: fentaNYL 100 MCG/2 ML INJECTION (J3010) IV PRN (08:45)
[2019-04-17] MEDS ORDERED: PROMETHAZINE INJ 25 MG/ML VIAL (J2550) IV PRN (08:45)
[2019-04-17 10:50] VITALS: BP 144/66
--- NOTE | 2019-04-17 18:27 | RO ---
DATE OF PROCEDURE: 04/17/2019 PREPROCEDURE DIAGNOSIS: Postmenopausal bleeding. POSTPROCEDURE DIAGNOSIS: Postmenopausal bleeding. PROCEDURE: Hysteroscopy, dilation and curettage (D and C), polypectomy. SURGEON: Gerard Birmingham MD RELIGIOUS HEALER: Janice Diehl MD ANESTHESIA: General endotracheal. ESTIMATED BLOOD LOSS: 20 mL. URINE OUTPUT: 200 mL. FINDINGS: Two endometrial polyps, moderate size noted. Mildly thickened endometrial lining with multiple small excrescences throughout the endometrium. The uterus sounds to 7 cm. Cervix appears normal. DESCRIPTION OF PROCEDURE: The patient was taken to the operating room where general endotracheal anesthesia was induced. She was prepped and draped in a sterile fashion in the dorsal lithotomy position. Speculum was placed in the vagina. The bladder had been emptied with a catheter. The cervix was dilated with tapered dilators. Diagnostic hysteroscope using normal saline as a distention medium was placed through the internal os. Visualization of the endometrial cavity was made with the findings noted above. Polyp forceps were used to remove both endometrial polyps in their entirety. Sharp curettage was performed and specimen sent to pathology. All instruments were removed. Sponge and instrument counts were correct.
== END 2019-04-17 11:20 | disposition home or self-care (01) ==
LOC: M SDC 05:55
PROVIDERS: ATTEND Specialist
DX: C54.1 Malignant neoplasm of endometrium (principal); N95.0 Postmenopausal bleeding; I10 Essential (primary) hypertension; E11.9 Type 2 diabetes mellitus without complications; M12.9 Arthropathy, unspecified; G47.33 Obstructive sleep apnea (adult) (pediatric); E55.9 Vitamin D deficiency, unspecified; Z68.42 Body mass index [BMI] 45.0-49.9, adult; Z88.1 Allergy status to other antibiotic agents; Z88.5 Allergy status to narcotic agent; Z91.041 Radiographic dye allergy status; Z79.899 Other long term (current) drug therapy; Z79.82 Long term (current) use of aspirin; Z87.891 Personal history of nicotine dependence; Z96.643 Presence of artificial hip joint, bilateral
CPT/HCPCS: 36415; 58558; 80048; 85027; 88305; J0131; J0330; J1100; J1885; J2250; J2370; J2405; J3010

== ENCOUNTER → 2019-05-13 | Outpatient (REF) | payer MEDICARE | LOC: M LAB REF 09:12 | PROVIDERS: ATTEND Surgery | DX: C44.619 Basal cell carcinoma of skin of left upper limb, including shoulder (principal) ==

== ENCOUNTER → 2019-06-20 | Outpatient (CLI) | payer MEDICARE ==
[~2019-06-20] MED LIST changes: +IBUP-1114 PO
[2019-06-20 11:01] LABS: BASO % 0.5 % (0.0-1.0); EOS # 0.2 10^3/uL (0.0-0.5); EOS % 2.1 % (0.0-3.0); HEMATOCRIT 39.3 % (36.0-47.0); LYMPH # 1.8 10^3/uL (1.5-5.0); LYMPH % 21.5 % (24.0-44.0); MEAN CORPUSCULAR HEMOGLOBIN 32.7 pg (27.0-33.0); MEAN CORPUSCULAR HGB CONC 33.1 g/dl (32.0-36.5); MEAN CORPUSCULAR VOLUME 98.7 fl (80.0-96.0); MONO # 0.9 10^3/uL (0.0-0.8); MONO % 10.2 % (0.0-5.0); NEUTROPHILS # 5.5 10^3/uL (1.5-8.5); NEUTROPHILS % 65.2 % (36.0-66.0); PLATELET COUNT, AUTOMATED 315 10^3/uL (150-450); RED BLOOD COUNT 3.98 10^6/uL (4.00-5.40); WHITE BLOOD COUNT 8.5 10^3/uL (4.0-10.0)
[2019-06-20 11:32] LABS: ALBUMIN 3.7 GM/DL (3.2-5.2); BILIRUBIN,TOTAL 0.3 MG/DL (0.2-1.0); CALCIUM LEVEL 9.8 MG/DL (8.8-10.2); CREATININE FOR GFR 1.51 MG/DL (0.55-1.30); GLOMERULAR FILTRATION RATE 36.4 (>45); TOTAL PROTEIN 7.6 GM/DL (6.4-8.2)
== END ==
LOC: M LAB 10:24
PROVIDERS: ATTEND Family Medicine
DX: Z01.818 Encounter for other preprocedural examination (principal)

== ENCOUNTER 2019-07-02 10:40 | Day surgery (SDC) | payer MEDICARE ==
[~2019-07-02] VITALS: Ht 165.1 cm; Wt 113.8 kg
[~2019-07-02 10:40] MED LIST changes: +LIDOCAINE 1% MDV 20ML VIAL SQ PRN; +LR 1,000 ML IV ONE
[2019-07-02] MEDS ORDERED: VASOPRESSIN INJ 20 UNITS/ML VIAL As Ordered ONE (11:06)
[2019-07-02 11:17] LABS: HEMATOCRIT 41.4 % (36.0-47.0); HEMOGLOBIN 13.7 g/dl (12.0-15.5); MEAN CORPUSCULAR HEMOGLOBIN 32.6 pg (27.0-33.0); MEAN CORPUSCULAR HGB CONC 33.1 g/dl (32.0-36.5); MEAN CORPUSCULAR VOLUME 98.6 fl (80.0-96.0); PLATELET COUNT, AUTOMATED 314 10^3/uL (150-450); WHITE BLOOD COUNT 9.6 10^3/uL (4.0-10.0)
[2019-07-02] MEDS ORDERED: AMOX875T2 (11:28)
[2019-07-02] MEDS ORDERED: PROPOFOL 200 MG/20 ML VIAL As Ordered ONE (11:37)
[2019-07-02] MEDS ORDERED: ROCURONIUM BROMIDE 50 MG/5 ML VIAL As Ordered ONE ×3 (11:37→17:56)
[2019-07-02] MEDS ORDERED: dexameTHASONE 4 MG/ML 1ML VIAL (J1100) As Ordered ONE (11:38)
[2019-07-02] MEDS ORDERED: ONDANSETRON 4MG/2ML VIAL (J2405) As Ordered ONE (11:38)
[2019-07-02] MEDS ORDERED: LIDOCAINE 2% INJ 100 MG/5 ML SDV (FOR ANES.) As Ordered ONE (11:38)
[2019-07-02] MEDS ORDERED: HumaLOG INSULIN (NovoLOG) PER UNIT As Ordered ONE (11:56)
[2019-07-02] MEDS ORDERED: CLINDAMYCIN 900 MG in IV 1 EA IV ONE (12:00)
[2019-07-02] MEDS ORDERED: GENTAMICIN 80 MG in IV 1 EA IV ONE (12:00)
[2019-07-02] MEDS ORDERED: HumaLOG INSULIN (NovoLOG) PER UNIT SC ONE (12:00)
[2019-07-02] MEDS ORDERED: fentaNYL 250 MCG/5 ML INJECTION (J3010) As Ordered ONE (12:11)
[2019-07-02] MEDS ORDERED: MIDAZOLAM INJ 2 MG/2 ML VIAL (J2250) As Ordered ONE (12:11)
[2019-07-02] MEDS ORDERED: SUGAMMADEX SODIUM 500 MG/5 ML VIAL (BRIDION) As Ordered ONE (16:23)
[2019-07-02] MEDS ORDERED: ACETAMINOPHEN 1000MG 100ML IV BTL (OFIRMEV) (J0131 PER 10MG) As Ordered ONE (16:50)
[2019-07-02] MEDS ORDERED: ePHEDrine SULFATE 25 MG/5 ML(5MG/ML) SYRINGE As Ordered ONE (17:39)
[2019-07-02] MEDS ORDERED: PHENYLephrine HCL 500 MCG/5 ML (100MCG/ML) SYRINGE (J2370) As Ordered ONE (17:39)
[2019-07-02] MEDS ORDERED: HYDROmorphone HCL 2 MG/ML 1ML VIAL (J1170) As Ordered ONE (17:44)
[2019-07-02] MEDS ORDERED: KETOROLAC 60 MG/2 ML VIAL (J1885) As Ordered ONE (18:50)
[2019-07-02] MEDS ORDERED: LABETALOL HCL 100 MG/20 ML VIAL As Ordered ONE (19:32)
[2019-07-02] MEDS: LABETALOL HCL 100 MG/20 ML VIAL IV PRN ×5 (19:32→20:03)
[2019-07-02 20:03] VITALS: BP 190/79
[2019-07-02] MEDS ORDERED: METOCLOPRAMIDE INJ 10MG/2ML VIAL (J2765) IV PRN (20:30)
[2019-07-02] MEDS ORDERED: LR 1,000 ML IV SCH ×2 (20:30→21:15)
[2019-07-02] MEDS ORDERED: oxyCODONE 5MG TAB PO PRN (20:30)
[2019-07-02] MEDS ORDERED: fentaNYL 100 MCG/2 ML INJECTION (J3010) IV PRN (20:30)
[2019-07-02] MEDS ORDERED: ONDANSETRON 4MG/2ML VIAL (J2405) IV PRN ×2 (20:30→21:15)
[2019-07-02 20:52] VITALS: BP 179/76
[2019-07-02] MEDS ORDERED: PERCOCET 5MG/325MG TAB PO PRN (21:15)
[2019-07-02] MEDS ORDERED: MORPHINE 4 MG/ML 1ML VIAL/SYRINGE (J2270) IV PRN (21:15)
[2019-07-02] MEDS ORDERED: KETOROLAC 30 MG/ML VIAL (J1885) IV PRN (21:15)
[2019-07-03 00:08] VITALS: BP 149/47
[2019-07-03 02:00] VITALS: BP 147/52
[2019-07-03 06:25] VITALS: BP 128/52
[2019-07-03] MEDS: HumaLOG INSULIN (NovoLOG) PER UNIT SC SCH ×3 (06:35→13:16)
[2019-07-03 07:28] LABS: MEAN CORPUSCULAR HEMOGLOBIN 32.8 pg (27.0-33.0); MEAN CORPUSCULAR HGB CONC 32.6 g/dl (32.0-36.5); MEAN CORPUSCULAR VOLUME 100.6 fl (80.0-96.0); PLATELET COUNT, AUTOMATED 276 10^3/uL (150-450); RED BLOOD COUNT 3.38 10^6/uL (4.00-5.40); WHITE BLOOD COUNT 16.8 10^3/uL (4.0-10.0)
[2019-07-03] MEDS ORDERED: GLIMEPIRIDE 2 MG TAB PO SCH (07:30)
[2019-07-03 07:38] LABS: HEMOGLOBIN 11.1 g/dl (12.0-15.5)
[2019-07-03] MEDS ORDERED: GABAPENTIN 300 MG CAP PO SCH (09:00)
[2019-07-03] MEDS ORDERED: SPIRONOLACTONE 25 MG TAB PO SCH (09:00)
[2019-07-03] MEDS ORDERED: LISINOPRIL 40 MG TAB PO SCH (09:00)
--- NOTE | 2019-07-03 11:25 | RO ---
DATE OF PROCEDURE: 07/02/2019 PREPROCEDURE DIAGNOSIS: Endometrial cancer, fibroid. POSTPROCEDURE DIAGNOSIS: Endometrial cancer, fibroid. PROCEDURE: Laparoscopic assisted vaginal hysterectomy and bilateral salpingo-oophorectomy. SURGEON: Dr. Gerard Birmingham. FIREMAN: Dr. Julia Aguiar. ANESTHESIA: General endotracheal tube. ESTIMATED BLOOD LOSS: 200 mL. URINE OUTPUT: 300 mL. FINDINGS: Enlarged uterus with a single intramural fibroid. Otherwise normal uterus, fallopian tubes and ovaries. Omental adhesions to the midline. She had adhesions of the small intestine to the right ovary. DESCRIPTION OF PROCEDURE: The patient taken to the operating room where general endotracheal anesthesia was induced. She was prepped and draped in sterile fashion in the dorsal lithotomy position. The bladder was emptied with a catheter. A weighted speculum was placed in the vagina. The anterior cervix was grasped with a tenaculum. Circumferential incision was made with the scalpel to the vaginal mucosa overlying the cervix. The vaginal mucosa was dissected off the cervix with a combination of blunt and sharp dissection. The posterior colpotomy was performed and a weighted speculum was placed in the posterior cul-de-sac. The uterosacral ligaments were grasped, incised and suture ligated with 0 Vicryl suture. The anterior colpotomy was performed. The uterus was larger than expected and had less descent than expected and the decision was made to assist the procedure with laparoscopy. Periumbilical incision was made with the scalpel. 10 mm trocar using the Visiport was inserted through this incision. Two 5 mm suprapubic ports were placed under direct visualization. Findings were as noted above. Using grasping device and LigaSure device, the infundibulopelvic (IP) ligaments were coagulated and incised. Broad ligament attachments were coagulated and incised. The round ligament was coagulated and incised. The anterior and posterior leaves of the broad ligament were . The uterine vessels were coagulated and incised. The specimen was removed through the vaginal. Surgery was then returned vaginally. A speculum was placed in the vagina. The anterior and posterior cuts were grasped with Allis clamps. The vaginal cuff was closed with running lock suture of #2-0 Vicryl. The uterosacral ligaments were incorporated in the closure. Sponge, instrument and needle counts were correct. Patient left for the recovery room in stable condition. Julia Aguiar MD assisted throughout the procedure. He helped with the vaginal portion of the case. He assisted with laparoscopy and taking down all of the different layers. He was indispensable to the procedure.
[2019-07-03] MEDS ORDERED: FUROSEMIDE 40 MG TAB PO ONE (14:00)
--- NOTE | 2019-07-03 18:25 | DSES ---
DATE OF ADMISSION: 07/02/2019 DATE OF DISCHARGE: 07/03/2019 A 69-year-old female who was admitted with postmenopausal bleeding for definitive surgical treatment. She was diagnosed with endometrial cancer during recent dilation and curettage procedure. She has multiple medical problems. She declined referral to [place] for management of endometrial cancer and opted to have definitive treatment here in [place]. HOSPITAL COURSE: On 07/02/2019, the patient underwent a laparoscopically-assisted vaginal hysterectomy and bilateral salpingo-oophorectomy. The procedure was uncomplicated. Her postoperative course was unremarkable. She had adequate return of bladder and bowel function. Her vital signs were stable throughout. Her postoperative hemoglobin was 11.1 grams/dL. She was deemed stable for discharge on postoperative day number one. ADMISSION DIAGNOSES: 1. Endometrial cancer. 2. Postmenopausal bleeding. DISCHARGE DIAGNOSES: 1. Endometrial cancer. 2. Postmenopausal bleeding. PROCEDURE: Laparoscopically-assisted vaginal hysterectomy with bilateral salpingo-oophorectomy. DISPOSITION: The patient will followup with Dr. Birmingham in two weeks. Instructions were reviewed.
== END 2019-07-03 17:55 | disposition home or self-care (01) ==
LOC: M SDC 10:40 → M MS5PR 20:34 → M SDC 07-03 17:55
PROVIDERS: ATTEND Specialist
DX: C54.1 Malignant neoplasm of endometrium (principal); Z17.0 Estrogen receptor positive status [ER+]; I10 Essential (primary) hypertension; E11.9 Type 2 diabetes mellitus without complications; E78.00 Pure hypercholesterolemia, unspecified; G47.30 Sleep apnea, unspecified; E66.01 Morbid (severe) obesity due to excess calories; Z87.891 Personal history of nicotine dependence; Z85.038 Personal history of other malignant neoplasm of large intestine; Z79.899 Other long term (current) drug therapy
CPT/HCPCS: 36415; 58571; 85027; 86850; 86900; 86901; 88309; 88342; 96374; G0378; J0131; J1100; J1170; J1580; J1885; J2250; J2370; J2405; J3010

== ENCOUNTER → 2019-08-29 | Outpatient (CLI) | payer MEDICARE ==
[~2019-08-29] MED LIST changes: +AMOX875T2; -GLIM4TAB PO; +GLIM4TAB3 PO; -LIDOCAINE 1% MDV 20ML VIAL SQ PRN; -LR 1,000 ML IV ONE
--- NOTE | 2019-08-29 19:11 | REP ---
CT chest without contrast: Low-dose screening study. History: Personal history of nicotine dependence. Comparison chest CT study August 23, 2018. CT findings: There are two or three tiny 2-3 mm noncalcified solid nodules scattered in the lung hudson, one of which appears to be new. This is in the left lower lobe page 38 of 104 in series 201 11/08. Today's study. In addition, there are multiple new ill-defined ground-glass opacities scattered in the upper lower lung zones bilaterally which were not apparent previously. These could be inflammatory changes. There are most pronounced in the left upper lobe. No large new nodule is appreciated. Impression: Scattered ill-defined ground-glass opacities bilaterally new from the study done 1 year earlier. Question inflammatory changes. There are several solid tiny nodules as well the largest of which is 3 mm nodule in the left lower lobe. Consider 6-month follow-up CT study. L - RADS category three exam. Electronically Signed by Maynor Fofana MD 08/30/2019 12:36 P
== END ==
LOC: M RAD 13:42
PROVIDERS: ATTEND Internal Medicine Pulmonary Disease
DX: Z87.891 Personal history of nicotine dependence (principal)

== ENCOUNTER → 2019-09-09 | Outpatient (CLI) | payer MEDICARE ==
[2019-09-09 15:14] LABS: C REACTIVE PROTEIN QUANTITATIV 2.72 MG/DL (0.00-0.30); RHEUMATOID FACTOR QUANT < 10.0 IU/ML (<15.0)
== END ==
LOC: M PLALAB 09:53
PROVIDERS: ATTEND Internal Medicine Pulmonary Disease
DX: R91.8 Other nonspecific abnormal finding of lung field (principal)

== ENCOUNTER → 2020-03-05 | Outpatient (CLI) | payer MEDICARE ==
[~2020-03-05] MED LIST changes: -GLIM4TAB3 PO; +GLIM4TAB5 PO
--- NOTE | 2020-03-05 12:00 | REP ---
REASON: Followup ground-glass opacities in the lung nodules. All prior chest CTs were reviewed, the latest of which is dated 10/29/[address] dose screening CT examination of the lungs. There is no mediastinal or zenia adenopathy. There are no pleural or pericardial effusions. The imaged osseous structures are unchanged from 08/23/2018. Evaluation of the lung hudson shows improved but mildly persisting scattered ground-glass opacities. Tiny lung nodules status quo. No new abnormal nodules, masses, or opacities have developed. There is evidence of mild early cylindrical bronchiectasis. IMPRESSION: There are some stable chronic changes as described above, however, there has been some improvement. Lung RADS category 2. Certainly, if clinically relevant, additional followup CT chest can be obtained. Electronically Signed by Leonel Burt DO 03/05/2020 12:26 P
== END ==
LOC: M RAD 10:27
PROVIDERS: ATTEND Internal Medicine Pulmonary Disease
DX: R91.8 Other nonspecific abnormal finding of lung field (principal); E11.9 Type 2 diabetes mellitus without complications

== ENCOUNTER → 2020-03-05 | Outpatient (CLI) | payer MEDICARE ==
[2020-03-05 11:12] LABS: HEMATOCRIT 36.7 % (36.0-47.0); HEMOGLOBIN 11.8 g/dl (12.0-15.5); MEAN CORPUSCULAR HEMOGLOBIN 31.5 pg (27.0-33.0); MEAN CORPUSCULAR HGB CONC 32.2 g/dl (32.0-36.5); MEAN CORPUSCULAR VOLUME 97.9 fl (80.0-96.0); PLATELET COUNT, AUTOMATED 307 10^3/uL (150-450); RED BLOOD COUNT 3.75 10^6/uL (4.00-5.40); WHITE BLOOD COUNT 7.8 10^3/uL (4.0-10.0)
[2020-03-05 11:44] LABS: HEMOGLOBIN A1c 8.8 %
[2020-03-05 12:01] LABS: ALBUMIN 3.7 GM/DL (3.2-5.2); ALT/SGPT 19 U/L (12-78); BILIRUBIN,TOTAL 0.4 MG/DL (0.2-1.0); BLOOD UREA NITROGEN 62 MG/DL (7-18); CALCIUM LEVEL 9.1 MG/DL (8.8-10.2); CARBON DIOXIDE LEVEL 24 MEQ/L (21-32); CHLORIDE LEVEL 106 MEQ/L (98-107); CHOLESTEROL LEVEL 290 MG/DL (<200); CHOLESTEROL RISK RATIO 8.529 (<5); GLOMERULAR FILTRATION RATE 43.2 (>45); GLUCOSE, FASTING 189 MG/DL (70-100); HDL CHOLESTEROL 34 MG/DL (>40); NON-HDL-C 256 MG/DL; POTASSIUM SERUM 5.4 MEQ/L (3.5-5.1); SODIUM LEVEL 136 MEQ/L (136-145); TOTAL PROTEIN 7.7 GM/DL (6.4-8.2); TRIGLYCERIDES LEVEL 469 MG/DL (<150)
[2020-03-05 12:23] LABS: CREATININE, URINE 57.4 MG/DL; MALB URINE SIEMENS 35.4 MG/L; MAU/CREAT RATIO 61.6 MCG/MG (0.0-30.0)
== END ==
LOC: M LAB 10:31
PROVIDERS: ATTEND Family Medicine
DX: E11.9 Type 2 diabetes mellitus without complications (principal)

== ENCOUNTER → 2020-12-13 | Outpatient (CLI) | payer MEDICARE ==
[~2020-12-13] MED LIST changes: +GABA-282 PO; -GABA-843 PO; -LISI40TA PO; +LISI40TA4 PO
--- NOTE | 2020-12-13 12:08 | REP ---
INDICATION: OTH NONSPEC ABN FIND OF LUNG FIELD; LAB 1ST CT 2ND COMPARISON: 03/05/2020, 08/23/2018 TECHNIQUE: Axial noncontrast images from the thoracic inlet to the upper abdomen with coronal and sagittal reformations. This CT examination was performed using the following dose reduction techniques: Automated exposure control, adjustment of mA and/or kv according to the patient's size, and use of iterative reconstruction technique. FINDINGS: Current examination demonstrates very subtle peripheral ground-glass opacities and minimal presumed age-related interstitial changes with mild basilar bronchiectasis. While these findings appear slightly progressive, they likely represent chronic age-related changes. No focal consolidation, significant nodule or mass lesion. No pleural effusion. No pneumothorax. No obvious adenopathy. Further evaluation of the mediastinum again demonstrates atherosclerotic changes to the thoracic aorta and coronary arteries without aortic aneurysm or cardiomegaly. No pericardial effusion. Hyperdense left thyroid nodule again noted. Musculoskeletal structures demonstrate degenerative changes without acute osseous abnormality. IMPRESSION: 1. Presumed mildly progressive chronic age-related changes. No significant consolidation, nodule/mass, or effusion. 2. Chronic left thyroid nodule <Electronically signed by Vignesh Cunningham > 12/13/20 1203
== END ==
LOC: M RAD 11:09
PROVIDERS: ATTEND Internal Medicine Pulmonary Disease
DX: R91.8 Other nonspecific abnormal finding of lung field (principal); E11.9 Type 2 diabetes mellitus without complications

== ENCOUNTER → 2020-12-13 | Outpatient (CLI) | payer MEDICARE ==
[2020-12-13 11:40] LABS: HEMATOCRIT 43.9 % (36.0-47.0); MEAN CORPUSCULAR HEMOGLOBIN 31.7 pg (27.0-33.0); MEAN CORPUSCULAR HGB CONC 31.9 g/dl (32.0-36.5); MEAN CORPUSCULAR VOLUME 99.3 fl (80.0-96.0); PLATELET COUNT, AUTOMATED 294 10^3/uL (150-450); RED BLOOD COUNT 4.42 10^6/uL (4.00-5.40); WHITE BLOOD COUNT 7.2 10^3/uL (4.0-10.0)
[2020-12-13 12:14] LABS: BLOOD UREA NITROGEN 30 MG/DL (7-18); CALCIUM LEVEL 10.4 MG/DL (8.8-10.2); CARBON DIOXIDE LEVEL 35 MEQ/L (21-32); CHLORIDE LEVEL 99 MEQ/L (98-107); CREATININE FOR GFR 1.22 MG/DL (0.55-1.30); GLOMERULAR FILTRATION RATE 46.4 (>39); GLUCOSE, FASTING 203 MG/DL (70-100); POTASSIUM SERUM 4.7 MEQ/L (3.5-5.1); SODIUM LEVEL 137 MEQ/L (136-145)
[2020-12-13 12:15] LABS: ALBUMIN 3.6 GM/DL (3.2-5.2); ALT/SGPT 24 U/L (12-78); BILIRUBIN,TOTAL 0.3 MG/DL (0.2-1.0); CHOLESTEROL LEVEL 365 MG/DL (<200); CHOLESTEROL RISK RATIO 9.358 (<5); HDL CHOLESTEROL 39 MG/DL (>40); NON-HDL-C 326 MG/DL; TRIGLYCERIDES LEVEL 712 MG/DL (<150)
[2020-12-13 12:50] LABS: HEMOGLOBIN A1c 9.5 %
== END ==
LOC: M LAB 11:14
PROVIDERS: ATTEND Family Medicine
DX: E11.9 Type 2 diabetes mellitus without complications (principal)

== ENCOUNTER → 2021-09-15 | Outpatient (CLI) | payer MEDICARE ==
--- NOTE | 2021-09-15 17:24 | REPVR ---
PROCEDURE INFORMATION: Exam: CT Chest Without Contrast; Diagnostic Exam date and time: 09/15/2021 2:38 PM Age: 71 years old Clinical indication: Condition or disease; Lung condition and disease; Other: Interstitial pumonary dx; Patient HX: HX colorectal, uterine CA TECHNIQUE: Imaging protocol: Diagnostic computed tomography of the chest without contrast. Radiation optimization: All CT scans at this facility use at least one of these dose optimization techniques: automated exposure control; mA and/or kV adjustment per patient size (includes targeted exams where dose is matched to clinical indication); or iterative reconstruction. COMPARISON: 1. CT Chest without contrast 12/13/2020 11:[address] Chest without contrast 08/23/2018 8:06:[address] Chest without contrast 03/05/2020 11:09:04 AM 4. A FINDINGS: Lungs: There is a 5 mm nodular density abutting the paramediastinal pleura in the left upper lobe, series 3, image 43 which is stable, unchanged in appearance compared to previous CT examinations dating back to 08/23/2018. There is mild chronic right paraspinal atelectasis. The lungs are otherwise clear. Pleural spaces: No pleural effusion. No pneumothorax. Heart: No cardiomegaly. Trace pericardial effusion is noted. Mediastinal space: There is wall thickening involving the mid and distal esophagus. Correlate with clinical information regarding esophagitis. Aorta: The thoracic aorta is normal caliber. No aneurysm or dissection is seen. Other arteries: Atherosclerotic vascular disease is noted. Lymph nodes: Prominent mediastinal lymph nodes measuring up to 10 mm in the short axis. These are nonspecific. Bones/joints: Unremarkable. No acute fracture. IMPRESSION: 1. Nodular density abutting the paramediastinal pleura in the left upper lobe measures 5 mm. This is stable, unchanged in appearance compared to previous CT examinations dating back to 08/23/2018. No further follow-up required for this lesion. 2. Mild chronic right paraspinal atelectasis. The lungs are otherwise clear. 3. Mid to distal esophageal wall thickening. Correlate with clinical information regarding esophagitis. Electronically signed by: Anne Banerjee On 09/15/2021 17:23:56 PM
== END ==
LOC: M PLAIMG 13:39
PROVIDERS: ATTEND Internal Medicine Pulmonary Disease
DX: J84.9 Interstitial pulmonary disease, unspecified (principal)

== ENCOUNTER → 2021-09-22 | Outpatient (CLI) | payer MEDICARE ==
[2021-09-22 16:10] LABS: CK-MB VALUE MASS 1.3 NG/ML (<3.6); MB/CK RELATIVE INDEX 2.65 (< OR =4)
[2021-10-10 15:07] LABS: ALDOLASE 9.6 U/L (3.3-10.3); ANCA-ATYPICAL <1:20 titer (Neg:<1:20); ANTI DS-DNA AB Negative (Negative); ANTI JO-1 ANTIBODIES <20 Units (<20); ANTINUCLEAR ANTIBODIES DIRECT Negative (Negative); CYTOPLASMIC NEUTROP AB ANCA-C <1:20 titer (Neg:<1:20); PERINUCLEAR AB ANCA-P <1:20 titer (Neg:<1:20); RNP ANTIBODIES <0.2 AI (0.0-0.9); SJOGREN'S ANTI SS-A <0.2 AI (0.0-0.9); SJOGREN'S ANTI SS-B <0.2 AI (0.0-0.9); SMITH ANTIBODIES 0.4 AI (0.0-0.9)
== END ==
LOC: M LAB 14:32
PROVIDERS: ATTEND Internal Medicine Pulmonary Disease
DX: J84.9 Interstitial pulmonary disease, unspecified (principal); M71.21 Synovial cyst of popliteal space [Baker], right knee; Z86.711 Personal history of pulmonary embolism; Z86.718 Personal history of other venous thrombosis and embolism

== ENCOUNTER → 2021-10-26 | Outpatient (CLI) | payer MEDICARE ==
[2021-10-26 16:27] LABS: HEMATOCRIT 61.3 % (36.0-47.0); HEMOGLOBIN 19.6 g/dl (12.0-15.5); MEAN CORPUSCULAR HEMOGLOBIN 31.6 pg (27.0-33.0); MEAN CORPUSCULAR VOLUME 98.9 fl (80.0-96.0); PLATELET COUNT, AUTOMATED 223 10^3/uL (150-450); WHITE BLOOD COUNT 6.5 10^3/uL (4.0-10.0)
[2021-10-26 16:57] LABS: ALBUMIN 2.8 GM/DL (3.2-5.2); BILIRUBIN,TOTAL 0.5 MG/DL (0.2-1.0); CALCIUM LEVEL 9.6 MG/DL (8.8-10.2); CREATININE FOR GFR 1.2 MG/DL (0.55-1.30); GLOMERULAR FILTRATION RATE 47.1 (>39); POTASSIUM SERUM 5.3 MEQ/L (3.5-5.1)
[2021-10-26 17:14] LABS: HEMOGLOBIN A1c 9.3 %
== END ==
LOC: M LAB 15:24
PROVIDERS: ATTEND Family Medicine
DX: E11.40 Type 2 diabetes mellitus with diabetic neuropathy, unspecified (principal)

== ENCOUNTER → 2022-01-16 | Outpatient (CLI) | payer MEDICARE ==
[2022-01-16 17:40] LABS: BASO % 0.5 % (0.0-1.0); EOS # 0.1 10^3/uL (0.0-0.5); EOS % 1.7 % (0.0-3.0); HEMATOCRIT 54.8 % (36.0-47.0); LYMPH # 1.5 10^3/uL (1.5-5.0); LYMPH % 18.9 % (24.0-44.0); MEAN CORPUSCULAR HEMOGLOBIN 33.6 pg (27.0-33.0); MEAN CORPUSCULAR HGB CONC 32.8 g/dl (32.0-36.5); MEAN CORPUSCULAR VOLUME 102.4 fl (80.0-96.0); MONO # 0.8 10^3/uL (0.0-0.8); MONO % 9.7 % (2.0-8.0); NEUTROPHILS # 5.6 10^3/uL (1.5-8.5); PLATELET COUNT, AUTOMATED 256 10^3/uL (150-450); RED BLOOD COUNT 5.35 10^6/uL (4.00-5.40); WHITE BLOOD COUNT 8.1 10^3/uL (4.0-10.0)
== END ==
LOC: M PLALAB 14:42
PROVIDERS: ATTEND Family Medicine
DX: D75.1 Secondary polycythemia (principal)

== ENCOUNTER → 2022-07-12 | Outpatient (CLI) | payer MEDICARE | LOC: M CARPUL 07-04 07:03 | PROVIDERS: ATTEND Internal Medicine Pulmonary Disease | DX: J96.11 Chronic respiratory failure with hypoxia (principal); I08.0 Rheumatic disorders of both mitral and aortic valves ==

== ENCOUNTER → 2022-08-18 | Outpatient (CLI) | payer MEDICARE ==
[2022-08-18 11:19] LABS: BASO % 0.4 % (0.0-1.0); EOS # 0.2 10^3/uL (0.0-0.5); EOS % 2.2 % (0.0-3.0); HEMATOCRIT 50.1 % (36.0-47.0); LYMPH # 1.1 10^3/uL (1.5-5.0); LYMPH % 16.1 % (24.0-44.0); MEAN CORPUSCULAR HEMOGLOBIN 32.9 pg (27.0-33.0); MEAN CORPUSCULAR HGB CONC 31.9 g/dl (32.0-36.5); MEAN CORPUSCULAR VOLUME 103.1 fl (80.0-96.0); MONO # 0.8 10^3/uL (0.0-0.8); MONO % 12.1 % (2.0-8.0); NEUTROPHILS # 4.8 10^3/uL (1.5-8.5); NEUTROPHILS % 68.8 % (36.0-66.0); PLATELET COUNT, AUTOMATED 224 10^3/uL (150-450); RED BLOOD COUNT 4.86 10^6/uL (4.00-5.40)
[2022-08-18 11:53] LABS: HEMOGLOBIN A1c 8.8 %
[2022-08-18 12:09] LABS: BILIRUBIN,TOTAL 0.4 MG/DL (0.2-1.0); CALCIUM LEVEL 9.1 MG/DL (8.8-10.2); CHOLESTEROL RISK RATIO 7.179 (<5); CREATININE FOR GFR 1.17 MG/DL (0.55-1.30); GLOMERULAR FILTRATION RATE 48.4 (>39); POTASSIUM SERUM 4.9 MEQ/L (3.5-5.1)
== END ==
LOC: M LAB 10:22
PROVIDERS: ATTEND Family Medicine
DX: E11.40 Type 2 diabetes mellitus with diabetic neuropathy, unspecified (principal)

== ENCOUNTER → 2022-09-18 | Outpatient (CLI) | payer MEDICARE | LOC: M RAD 12:22 | PROVIDERS: ATTEND Internal Medicine Pulmonary Disease | DX: Z12.2 Encounter for screening for malignant neoplasm of respiratory organs (principal); Z87.891 Personal history of nicotine dependence ==

== ENCOUNTER → 2023-06-15 | Outpatient (CLI) | payer MEDICARE ==
[~2023-06-15] MED LIST changes: +INSU100I6 SC; -LEVE1INJ5 SC
== END ==
LOC: M WUC 08:49
PROVIDERS: ATTEND Nurse Practitioner Family
DX: M19.90 Unspecified osteoarthritis, unspecified site (principal)

== ENCOUNTER → 2023-07-15 | Outpatient (CLI) | payer MEDICARE ==
[~2023-07-15] MED LIST changes: +ACET-897 PO; +AMOX875T2 PO; +ATOR40TA75 PO; +FURO40TA2 PO; +MIRA1POW3 PO; +ONDA-84 PO; +ONDA4TAB6 PO; +REGL10TA6 PO; +SENN-188 PO
[2023-07-15 10:59] LABS: CALCIUM LEVEL 8.6 MG/DL (8.3-10.6); CREATININE FOR GFR 1.15 MG/DL (0.55-1.30); GLOMERULAR FILTRATION RATE 49.2 (>39); POTASSIUM SERUM 4.5 MMOL/L (3.5-5.1)
== END ==
LOC: M LAB 10:12
PROVIDERS: ATTEND Family Medicine
DX: E11.40 Type 2 diabetes mellitus with diabetic neuropathy, unspecified (principal)

== ENCOUNTER → 2024-01-30 | Outpatient (CLI) | payer MEDICARE ==
[~2024-01-30] MED LIST changes: -MIRA1POW3 PO; +MIRA33506 PO
== END ==
LOC: M RAD 14:34
PROVIDERS: ATTEND Internal Medicine Pulmonary Disease
DX: Z87.891 Personal history of nicotine dependence (principal)

== ENCOUNTER → 2024-03-10 | Outpatient (CLI) | payer MEDICARE | LOC: M RAD 12:52 | PROVIDERS: ATTEND Family Medicine | DX: E04.1 Nontoxic single thyroid nodule (principal) ==

== ENCOUNTER → 2024-03-19 | Outpatient (CLI) | payer MEDICARE ==
[~2024-03-19] MED LIST changes: +ONDA-282 PO; -ONDA4TAB6 PO
[2024-03-19 15:25] LABS: FREE T4 0.87 NG/DL (0.89-1.76); THYROID STIMULATING HORMONE 1.8 uIU/ML (0.55-4.78)
[2024-03-19 15:27] LABS: FREE T3 2.9 PG/ML (2.3-4.2)
== END ==
LOC: M LAB 14:21
PROVIDERS: ATTEND Family Medicine
DX: E04.1 Nontoxic single thyroid nodule (principal)

== ENCOUNTER → 2024-06-02 | Outpatient (CLI) | payer MEDICARE ==
[2024-06-02 07:54] LABS: BASO # 0.1 10^3/uL (0.0-0.2); BASO % 0.7 % (0.0-1.0); EOS # 0.1 10^3/uL (0.0-0.5); EOS % 1.7 % (0.0-3.0); HEMATOCRIT 37.8 % (36.0-47.0); HEMOGLOBIN 12.5 g/dl (12.0-15.5); LYMPH # 1.8 10^3/uL (1.5-5.0); LYMPH % 22.2 % (24.0-44.0); MEAN CORPUSCULAR HEMOGLOBIN 31.3 pg (27.0-33.0); MEAN CORPUSCULAR HGB CONC 33.1 g/dl (32.0-36.5); MEAN CORPUSCULAR VOLUME 94.5 fl (80.0-96.0); MONO % 12.3 % (2.0-8.0); NEUTROPHILS # 5.1 10^3/uL (1.5-8.5); NEUTROPHILS % 62.7 % (36.0-66.0); PLATELET COUNT, AUTOMATED 324 10^3/uL (150-450); WHITE BLOOD COUNT 8.2 10^3/uL (4.0-10.0)
[2024-06-02 08:19] LABS: ALBUMIN 2.6 G/DL (3.2-5.2); BILIRUBIN,TOTAL 0.2 MG/DL (0.3-1.2); CALCIUM LEVEL 8.6 MG/DL (8.3-10.6); CHOLESTEROL RISK RATIO 6.01 (<5); CREATININE FOR GFR 1.56 MG/DL (0.55-1.30); CREATININE, URINE 75.9 MG/DL; GLOMERULAR FILTRATION RATE 34.6 (>39); HDL CHOLESTEROL 34.1 MG/DL (>40); LDL CHOLESTEROL 96.1 MG/DL (<100); NON-HDL-C 170.9 MG/DL; POTASSIUM SERUM 4.6 MMOL/L (3.5-5.1); TOTAL PROTEIN 6.3 G/DL (5.7-8.2)
[2024-06-02 08:30] LABS: MAU/CREAT RATIO 3703.5 MCG/MG (0.0-30.0)
[2024-06-02 08:37] LABS: HEMOGLOBIN A1c 8.4 % (4.0-6.0)
== END ==
LOC: M LAB 07:14
PROVIDERS: ATTEND Family Medicine
DX: E11.40 Type 2 diabetes mellitus with diabetic neuropathy, unspecified (principal)

== ENCOUNTER → 2024-06-30 | Outpatient (CLI) | payer MEDICARE | LOC: M IRPRO 11:50 | PROVIDERS: ATTEND Internal Medicine Endocrinology, Diabetes & Metabolism | DX: E04.1 Nontoxic single thyroid nodule (principal) ==

== ENCOUNTER → 2025-02-07 | Outpatient (CLI) | payer MEDICARE ==
[~2025-02-07] MED LIST changes: +GABA-1172 PO; -GABA-282 PO
[2025-02-07 09:34] LABS: BASO # 0.1 10^3/uL (0.0-0.2); BASO % 0.5 % (0.0-1.0); EOS # 0.2 10^3/uL (0.0-0.5); EOS % 1.5 % (0.0-3.0); HEMATOCRIT 35.6 % (36.0-47.0); HEMOGLOBIN 11.5 g/dl (12.0-15.5); LYMPH # 1.4 10^3/uL (1.5-5.0); LYMPH % 11.8 % (24.0-44.0); MEAN CORPUSCULAR HEMOGLOBIN 31.2 pg (27.0-33.0); MEAN CORPUSCULAR HGB CONC 32.3 g/dl (32.0-36.5); MEAN CORPUSCULAR VOLUME 96.5 fl (80.0-96.0); MONO # 1.1 10^3/uL (0.0-0.8); MONO % 9.1 % (2.0-8.0); NEUTROPHILS % 76.8 % (36.0-66.0); PLATELET COUNT, AUTOMATED 349 10^3/uL (150-450); RED BLOOD COUNT 3.69 10^6/uL (4.00-5.40); WHITE BLOOD COUNT 11.7 10^3/uL (4.0-10.0)
[2025-02-07 09:59] LABS: ALBUMIN 2.5 G/DL (3.2-5.2); BILIRUBIN,TOTAL 0.3 MG/DL (0.3-1.2); CALCIUM LEVEL 8.8 MG/DL (8.3-10.6); CHOLESTEROL RISK RATIO 5.2 (<5); CREATININE FOR GFR 1.84 MG/DL (0.55-1.30); CREATININE, URINE 55.7 MG/DL; GLOMERULAR FILTRATION RATE 28.4 (>39); HDL CHOLESTEROL 41.9 MG/DL (>40); LDL CHOLESTEROL 131.9 MG/DL (<100); NON-HDL-C 176.1 MG/DL; POTASSIUM SERUM 4.2 MMOL/L (3.5-5.1); TOTAL PROTEIN 6.3 G/DL (5.7-8.2)
[2025-02-07 10:02] LABS: THYROID STIMULATING HORMONE 2.67 uIU/ML (0.55-4.78)
[2025-02-07 10:26] LABS: MALB URINE SIEMENS > 3800.0 MG/L
== END ==
LOC: M LAB 08:29
PROVIDERS: ATTEND Family Medicine
DX: E11.40 Type 2 diabetes mellitus with diabetic neuropathy, unspecified (principal); E04.1 Nontoxic single thyroid nodule

== ENCOUNTER → 2025-04-17 | Outpatient (CLI) | payer MEDICARE ==
[~2025-04-17] MED LIST changes: +LISI40TA10 PO; -LISI40TA4 PO
[2025-04-17 12:52] LABS: CALCIUM LEVEL 8.6 MG/DL (8.3-10.6); CARBON DIOXIDE LEVEL 26.0 MMOL/L (20-31); CHLORIDE LEVEL 107.0 MMOL/L (98-107); CREATININE FOR GFR 1.92 MG/DL (0.55-1.30); GLOMERULAR FILTRATION RATE 27.0 (>39); POTASSIUM SERUM 4.9 MMOL/L (3.5-5.1); SODIUM LEVEL 144.0 MMOL/L (136-145)
== END ==
LOC: M LAB 11:30
PROVIDERS: ATTEND Family Medicine
DX: N18.30 Chronic kidney disease, stage 3 unspecified (principal)

== ENCOUNTER → 2025-07-15 | Outpatient (CLI) | payer MEDICARE ==
[2025-07-15 16:04] LABS: BASO # 0.1 10^3/uL (0.0-0.2); BASO % 0.7 % (0.0-1.0); EOS # 0.1 10^3/uL (0.0-0.5); EOS % 1.3 % (0.0-3.0); LYMPH # 1.3 10^3/uL (1.5-5.0); LYMPH % 16.3 % (24.0-44.0); MONO # 0.7 10^3/uL (0.0-0.8); MONO % 9.5 % (2.0-8.0); NEUTROPHILS # 5.5 10^3/uL (1.5-8.5); NEUTROPHILS % 71.9 % (36.0-66.0); PLATELET COUNT, AUTOMATED 387 10^3/uL (150-450)
[2025-07-15 16:57] LABS: ALT/SGPT 16.0 U/L (7.0-40); AST/SGOT 21.0 U/L (<34); CALCIUM LEVEL 8.7 MG/DL (8.3-10.6); CARBON DIOXIDE LEVEL 23.0 MMOL/L (20-31); CHLORIDE LEVEL 109.0 MMOL/L (98-107); CREATININE FOR GFR 2.08 MG/DL (0.55-1.30); GLOMERULAR FILTRATION RATE 24.4 (>39); POTASSIUM SERUM 4.7 MMOL/L (3.5-5.1); SODIUM LEVEL 143.0 MMOL/L (136-145)
== END ==
LOC: M RAD 15:24
PROVIDERS: ATTEND Family Medicine
DX: E04.2 Nontoxic multinodular goiter (principal); E11.40 Type 2 diabetes mellitus with diabetic neuropathy, unspecified; I50.32 Chronic diastolic (congestive) heart failure